=== PATIENT | male | born 1990 | race Caucasian/White ===

== ENCOUNTER 2018-07-18 02:49 | Emergency (ER) | payer BC ==
[2018-07-18 02:53] VITALS: Ht 188 cm
[2018-07-18] MEDS ORDERED: ONDANSETRON INJ 2 MG/ML 2 ML VIAL IV STA (03:05)
[2018-07-18] MEDS ORDERED: FENTANYL CITRATE INJ 50 MCG/1 ML 2 ML VIAL IV ONE (03:15)
[2018-07-18] MEDS ORDERED: SODIUM CHLORIDE 0.9% 1000ML 1,000 ML IV ONE ×2 (03:15→04:00)
[2018-07-18 03:24] LABS: BASO % 0.6 %; BASO ABS # 0.08 K/uL (0-0.2); EOS ABS # 0.39 K/uL (0-0.5); HEMATOCRIT 43.3 % (42-52); HEMOGLOBIN 14.2 g/dL (14.0-18.0); IG# 0.04 K/uL (0.00-0.02); LYMPH % 24.1 %; LYMPH ABS # 3.13 K/uL (1.2-3.4); MEAN CELL VOLUME 89.6 fL (80-100); MEAN CORPUSCULAR HEMOGLOBIN 29.4 pg (25-34); MEAN CORPUSCULAR HGB CONC 32.8 g/dl (32-36); MEAN PLATELET VOLUME 10.5 fL (7.4-10.4); MONO % 7.9 %; MONO ABS # 1.03 K/uL (0.11-0.59); NEUT % 64.1 %; NEUT ABS # 8.34 K/uL (1.4-6.5); PLATELET COUNT 270 K/uL (130-400); RED CELL DISTRIBUTION WIDTH CV 12.7 % (11.5-14.5); RED CELL DISTRIBUTION WIDTH SD 41.6 fL (36.4-46.3); WHITE BLOOD COUNT 13.01 K/uL (4.8-10.8)
[2018-07-18] MEDS ORDERED: HYDROmorphone INJ 1 MG/ML SYR IV STA (03:45)
[2018-07-18 03:58] LABS: ALBUMIN 4.2 gm/dl (3.4-5.0); ALKALINE PHOSPHATASE 62 U/L (45-117); ALT/SGPT 22 U/L (12-78); AST/SGOT 18 U/L (15-37); BLOOD UREA NITROGEN 13 mg/dl (7-18); CALCIUM 8.8 mg/dl (8.5-10.1); CARBON DIOXIDE 27 mmol/L (21-32); CREATININE 1.24 mg/dl (0.60-1.40); GLUCOSE 172 mg/dl (70-99); POTASSIUM 3.6 mmol/L (3.5-5.1); SODIUM 140 mmol/L (136-145); TOTAL PROTEIN 7.2 gm/dl (6.4-8.2)
[2018-07-18] MEDS ORDERED: LIDOCAINE HCL 2% JELLY 30 ML TUBE EXT ONE (04:00)
[2018-07-18] MEDS ORDERED: LIDOCAINE 2% JELLY 5 ML TUBE ONE ×2 (04:16→04:41)
--- NOTE | 2018-07-18 04:56 | EMERGENCY ROOM VISIT NOTE ---
History First contact with patient: 02:59 Chief Complaint: HIP PAIN Stated Complaint: HURT HIP History of Present Illness The patient is a 28 year old male who presents to the Emergency Room with complaints of right hip injury that occurred about 30 minutes prior to arrival, roughly 2:30 AM. The patient states that he was skateboarding with his friends , when he attempted a truck, missed the skateboard, and fell onto his right hip. The patient has significant pain in the hip and is unable to ambulate. He did not strike his head or lose consciousness. No significant blood or bleeding. The patient considers himself otherwise usually healthy. He did have a meal around 10:30 PM last night. He has been sipping on water. The patient is without head, neck, chest, or abdominal pain. No numbness or paresthesias. The patient considers himself usually healthy. At rest his pain is a 7/10. With movement of the right leg it is a 10/10. Review of Systems More than 10 systems were reviewed and otherwise negative with the exception of history of present illness. Past Medical/Surgical History No chronic medical disease Family History No pertinent family history Social History Smoking Status: Never Smoker Occupation Status: employed Physical Exam Vital Signs Date Time Temp Pulse Resp B/P (MAP) Pulse Ox O2 Delivery O2 Flow Rate FiO2 07/18/18 02:53 85 18 107/73 98 Room Air Physical Exam VITALS: Vitals are noted on the nurse's note and reviewed by myself. Vital signs stable. GENERAL: Well-developed, well-nourished, white male who appears in significant discomfort. HEAD: Normocephalic atraumatic. No matias sign or raccoon eyes EARS: External ear normal. External auditory canals clear, tympanic membranes pearly tao without erythema or effusion bilaterally. No hemotympanum EYES: Pupils equal round and reactive to light and accommodation. Conjunctivae without injection, sclerae without icterus. Extraocular movements intact. NOSE: Patent, turbinates without inflammation or discharge. MOUTH: Mucous membranes moist. Tonsils are not enlarged. Pharynx without erythema, blood, or exudate. Uvula midline. Airway patent. NECK: Supple without nuchal rigidity. No lymphadenopathy. No thyromegaly. Cervical spine is nontender. HEART: Regular rate and rhythm without murmurs gallops or rubs. LUNGS: Clear to auscultation bilaterally without wheezes, rales or rhonchi. No retractions or accessory muscle use. ABDOMEN: Positive normal bowel sounds x 4. Soft, nontender, without masses or organomegaly. No guarding or rebound tenderness. MUSCULOSKELETAL: Right lower leg is rotated medially and shortened. Significant tenderness is appreciated over the right hip/proximal femur. Superficial abrasions are noted but no distinct lacerations. Neurovascular status is intact to the right lower extremity. No other extremity injury is noted. NEURO: Patient was alert and oriented to person place and time. CN II through XII grossly intact. Medical Decision & Procedures Laboratory Results 07/18/18 03:10 Red Blood Count 4.83, Mean Corpuscular Volume 89.6, Mean Corpuscular Hemoglobin 29.4, Mean Corpuscular Hemoglobin Concent 32.8, Mean Platelet Volume 10.5, Neutrophils (%) (Auto) 64.1, Lymphocytes (%) (Auto) 24.1, Monocytes (%) (Auto) 7.9, Eosinophils (%) (Auto) 3.0, Basophils (%) (Auto) 0.6, Neutrophils # (Auto) 8.34, Lymphocytes # (Auto) 3.13, Monocytes # (Auto) 1.03, Eosinophils # (Auto) 0.39, Basophils # (Auto) 0.08 07/18/18 03:10 Test 07/18/18 03:10 White Blood Count 13.01 K/uL (4.8-10.8) Red Blood Count 4.83 M/uL (4.7-6.1) Hemoglobin 14.2 g/dL (14.0-18.0) Hematocrit 43.3 % (42-52) Mean Corpuscular Volume 89.6 fL (80-100) Mean Corpuscular Hemoglobin 29.4 pg (25-34) Mean Corpuscular Hemoglobin Concent 32.8 g/dl (32-36) Platelet Count 270 K/uL (130-400) Mean Platelet Volume 10.5 fL (7.4-10.4) Neutrophils (%) (Auto) 64.1 % Lymphocytes (%) (Auto) 24.1 % Monocytes (%) (Auto) 7.9 % Eosinophils (%) (Auto) 3.0 % Basophils (%) (Auto) 0.6 % Neutrophils # (Auto) 8.34 K/uL (1.4-6.5) Lymphocytes # (Auto) 3.13 K/uL (1.2-3.4) Monocytes # (Auto) 1.03 K/uL (0.11-0.59) Eosinophils # (Auto) 0.39 K/uL (0-0.5) Basophils # (Auto) 0.08 K/uL (0-0.2) RDW Standard Deviation 41.6 fL (36.4-46.3) RDW Coefficient of Variation 12.7 % (11.5-14.5) Immature Granulocyte % (Auto) 0.3 % Immature Granulocyte # (Auto) 0.04 K/uL (0.00-0.02) Anion Gap 10.0 mmol/L (3-11) Estimated GFR () 89.9 Estimated GFR (Non- 77.5 BUN/Creatinine Ratio 10.4 (10-20) Calcium Level 8.8 mg/dl (8.5-10.1) Total Bilirubin 0.4 mg/dl (0.2-1) Aspartate Amino Transf (AST/SGOT) 18 U/L (15-37) Alanine Aminotransferase (ALT/SGPT) 22 U/L (12-78) Alkaline Phosphatase 62 U/L (45-117) Total Protein 7.2 gm/dl (6.4-8.2) Albumin 4.2 gm/dl (3.4-5.0) Globulin 3.0 gm/dl (2.5-4.0) Albumin/Globulin Ratio 1.4 (0.9-2) Chemistry Specimen Hemolysis Medications Administered Medications (Trade) Dose Ordered Sig/Jeferson Route Start Time Stop Time Status Last Admin Dose Admin Sodium Chloride 1,000 ml @ 999 mls/hr Q1H1M ONCE IV 07/18/18 03:15 07/18/18 04:15 DC 07/18/18 03:14 999 MLS/HR Ondansetron HCl (Zofran Inj) 4 mg NOW STAT IV 07/18/18 03:05 07/18/18 03:07 DC 07/18/18 03:14 4 MG Fentanyl Citrate (Fentanyl Inj) 50 mcg NOW ONCE IV 07/18/18 03:15 07/18/18 03:16 DC 07/18/18 03:14 50 MCG Hydromorphone HCl (Dilaudid Inj) 1 mg NOW STAT IV 07/18/18 03:45 07/18/18 03:46 DC 07/18/18 03:52 1 MG ED Course Physical exam and history were performed. Nursing notes, EMR, and Medication List were personally reviewed. Patient appears to have suffered injury to his right hip after falling while skateboarding just prior to arrival. On presentation the patient is quite uncomfortable. IV access was established and labs were obtained. The patient was given IV fentanyl and x-rays were performed. X-rays were reviewed by myself and my attending and show a subtrochanteric fracture of the right femur. Due to the nature of the injury a second IV was placed as well as a Morris catheter. The patient was reevaluated and continues to have pain in his right thigh, however there is no significant bruising into this area. Additional pain medication was provided. The patient was placed in traction and orthopedics was consulted. I spoke with Dr. Cohn of [facility], who was able to review the x-rays. Dr. Cohn confirms the fracture, and expressed significant concern due to the amount of force required to cause this type of injury. Due to the traumatic nature of the injury and our inability to effectively care for this type of injury at this facility, recommendation was to transfer the patient to a trauma center. I spoke to the patient, who prefers [facility]. I spoke with [facility] , and Dr. Guillen except the patient has a level 3 trauma to the ER. Appropriate consents and paperwork were completed. The patient was transferred via ALS The chart was completed utilizing [employer] Speech Voice Recognition Software. Grammatical errors, random word insertions, pronoun errors, and incomplete sentences are an occasional consequence of this system due to software limitations, ambient noise, and hardware issues. Any formal questions or concerns about the content, text, or information contained within the body of this dictation should be directly addressed to the provider for clarification. . Medical Decision Differential diagnosis includes, but is not limited to: Sprain, strain, fracture , dislocation, subluxation, contusion, and others Impression Primary Impression: Subtrochanteric fracture of femur Additional Impression: Fall Departure Information Referrals No Doctor, Assigned (PCP) Patient Instructions [facility] Problem Qualifiers
[2018-07-18] MEDS ORDERED: [UNRECOGNIZED DRUG - CODE] PO (05:28)
[2018-07-18] MEDS ORDERED: AMPH20TA2 PO (05:29)
[2018-07-18 05:47] VITALS: BP 118/80; PULSE 89; O2SAT 98
--- NOTE | 2018-07-18 06:53 | DIAGNOSTIC IMAGING REPORT ---
PELVIS 1 OR 2 VIEW ROUTINE CLINICAL HISTORY: Trauma. Right hip injury. COMPARISON STUDY: No previous studies for comparison. FINDINGS: Evaluation is suboptimal due to difficulty positioning related to the displaced oblique subtrochanteric fracture of the right femur which is better depicted on the right femur radiographs. The sacroiliac joints and symphysis pubis are intact. No acute fracture within the pelvis or left hip is present. IMPRESSION: 1. Displaced oblique subtrochanteric fracture of the right femur which is better depicted on the right femur radiographs. Please see that report for further description. 2. No acute fracture within the pelvis or left hip. Electronically signed by: Delfino Gant M.D. 07/18/2018 6:51 AM Dictated Date/Time: 07/18/2018 6:50 AM
--- NOTE | 2018-07-18 06:54 | DIAGNOSTIC IMAGING REPORT ---
R FEMUR 2 VIEWS ROUTINE CLINICAL HISTORY: Right leg injury. COMPARISON: None FINDINGS: Evaluation is suboptimal given difficulty positioning. There is an oblique markedly displaced angulated subtrochanteric fracture of the right femur. Fracture is displaced approximately 4.5 cm. No additional right femoral fractures are noted. Alignment of the right hip and knee is anatomic. There is pronounced soft tissue swelling. IMPRESSION: Oblique moderately displaced angulated subtrochanteric fracture of the right femur. Electronically signed by: Delfino Gant M.D. 07/18/2018 6:53 AM Dictated Date/Time: 07/18/2018 6:51 AM
== END 2018-07-18 05:45 | disposition short-term general hospital (02) ==
LOC: C.EDB 02:50
DX: S72.21XA Displaced subtrochanteric fracture of right femur, initial encounter for closed fracture (principal); V00.131A Fall from skateboard, initial encounter; Y93.51 Activity, roller skating (inline) and skateboarding; Y99.8 Other external cause status